=== PATIENT | female | born 1940 | race Caucasian/White ===

== ENCOUNTER 2017-05-28 15:55 | Emergency (ER) | payer OTHER ==
[~2017-05-28] VITALS: Ht 157.5 cm; Wt 59.0 kg
[2017-05-28 16:06] VITALS: TEMP 36.8; Ht 157.5 cm; Wt 59.0 kg
[2017-05-28] MEDS ORDERED: SODIUM CHLORIDE 0.9% 1000ML 1,000 ML IV ONE (17:30)
[2017-05-28] MEDS ORDERED: SYN50 PO (17:35)
[2017-05-28] MEDS ORDERED: METO50TA16 PO (17:35)
[2017-05-28] MEDS ORDERED: AMLO-110 PO (17:35)
[2017-05-28] MEDS ORDERED: LISI-725 PO (17:35)
[2017-05-28] MEDS ORDERED: PRVC/40 PO (17:35)
[2017-05-28 18:31] LABS: BASO % 0.6 %; BASO ABS # 0.04 K/uL (0-0.2); COMPLETE YES; EOS % 3.1 %; HEMATOCRIT 31.4 % (37-47); IG% 0.2 %; LYMPH % 23.5 %; LYMPH ABS # 1.45 K/uL (1.2-3.4); MEAN CORPUSCULAR HEMOGLOBIN 28.5 pg (25-34); MEAN CORPUSCULAR HGB CONC 33.1 g/dl (32-36); MEAN PLATELET VOLUME 9.3 fL (7.4-10.4); MONO % 9.4 %; NEUT % 63.2 %; PLATELET COUNT 395 K/uL (130-400); RED BLOOD COUNT 3.65 M/uL (4.2-5.4); WHITE BLOOD COUNT 6.18 K/uL (4.8-10.8)
[2017-05-28 18:41] LABS: PROTHROMBIN TIME (PATIENT) 10.4 SECONDS (9.0-12.0)
--- NOTE | 2017-05-28 18:49 | DIAGNOSTIC IMAGING REPORT ---
CT OF THE HEAD WITHOUT CONTRAST CLINICAL HISTORY: Confusion. COMPARISON STUDY: No previous studies for comparison. CT DOSE: 1565.50 mGycm TECHNIQUE: Helical axial images of the head were obtained without IV contrast. Automated exposure control was utilized for the study. A dose lowering technique was utilized adhering to the principles of ALARA. FINDINGS: No acute intracranial hemorrhage, midline shift or mass effect is present. Ventricular system is normal for age. Basilar cisterns are patent. There are no extra axial collections. Payton-white differentiation is preserved. White matter hypodensities suggest moderate small vessel disease. There are no CT findings to suggest acute dural sinus thrombosis or acute territorial infarct. There may be age indeterminate lacunar infarcts within the bilateral basal ganglia. There are no significant calvarial abnormalities. There is mild mucosal thickening of the ethmoid sinuses. IMPRESSION: 1. No acute intracranial hemorrhage or mass effect. 2. Age indeterminate lacunar infarcts within the bilateral basal ganglia and moderate presumed small vessel disease. Electronically signed by: Hugh Thomson M.D. 05/28/2017 6:47 PM Dictated Date/Time: 05/28/2017 6:44 PM
[2017-05-28] MEDS ORDERED: LISINOPRIL 20 MG TAB PO STA (18:57)
[2017-05-28] MEDS ORDERED: METOPROLOL TARTRATE 50 MG TAB PO STA (18:57)
[2017-05-28] MEDS ORDERED: LISINOPRIL 5 MG TAB ONE (19:03)
[2017-05-28 19:12] LABS: BUN/CREATININE RATIO 20.6 (10-20); CALCIUM 9.6 mg/dl (8.5-10.1); CKMB/CK RATIO 2.3 (0-3.0); CREATININE 1.1 mg/dl (0.60-1.20)
[2017-05-28 19:18] LABS: POTASSIUM 4.6 mmol/L (3.5-5.1)
[2017-05-28 20:24] LABS: URINE APPEARANCE CLEAR (CLEAR); URINE BILIRUBIN NEG (NEG); URINE COLOR YELLOW; URINE NITRITE NEG (NEG); URINE PH 5.5 (4.5-7.5); URINE SPECIFIC GRAVITY 1.014 (1.000-1.030); UROBILINOGEN NEG (NEG)
[2017-05-28 20:26] LABS: MANUAL MICROSCOPIC REQUIRED? NO; REVIEW REQ? NO
--- NOTE | 2017-05-28 22:09 | DIAGNOSTIC IMAGING REPORT ---
MRI OF THE BRAIN WITHOUT CONTRAST CLINICAL HISTORY: Confusion. Falls. Evaluate for stroke. COMPARISON STUDY: Head CT performed earlier today. TECHNIQUE: Utilizing a 1.5 Tessie magnet and dedicated coil, multiplanar, multiecho imaging of the brain was performed without IV contrast. FINDINGS: There are no areas of restricted diffusion to suggest acute infarct. Study is mildly compromised by artifact but is diagnostic. Basilar cisterns are patent. There are no extra-axial collections. No acute intracranial hemorrhage, midline shift or mass effect is present. There is moderate atrophy. White matter T2 hyperintense foci suggest moderate small vessel disease. No intracranial masses are identified on this unenhanced exam. Calvarial signal is maintained. There is mild mucosal thickening of the ethmoid sinuses. IMPRESSION: 1. No acute intracranial findings. 2. Moderate atrophy and moderate small vessel disease. Electronically signed by: Hugh Thomson M.D. 05/28/2017 10:08 PM Dictated Date/Time: 05/28/2017 10:05 PM
--- NOTE | 2017-05-28 22:26 | EMERGENCY ROOM VISIT NOTE ---
ED Visit Note First contact with patient: 17:06 HPI: Dizziness, imbalance, intermittent b/l arm, b/l leg weakness PE: AFVSS, NAD NC/AT, dry MM RRR, no murmurs CTAB Abd soft NT/ND Ext: no edema, erythema Neuro: CN II-XII grossly intact, 5/5 strength and SILT x 4 Ext. No cerebellar deficits including normal [id number] and alt palms. Plan: Labs unremarkable including trop negative without delta 2 hour change, CT head negative for acute changes, MRI negative for acute changes. Patient improve after IVF. Plan for pcp, ortho, neuro f/u. I reviewed the patient's past medical history, medications, and visit nursing notes. I discussed the case with the physician clerical assistant, examined the patient, and agree with the findings and plan as documented in the physician assistants note.
[2017-05-28 22:40] VITALS: BP 161/71; PULSE 76; O2SAT 97
--- NOTE | 2017-05-29 01:25 | EMERGENCY ROOM VISIT NOTE ---
ED Visit Note First contact with patient: 17:06 Chief Complaint: I'm having stroke symptoms. History of Present Illness: Ms. Glass is a 77-year-old white female who ambulates into the ED complaining of confusion, coordination problems, knees and elbows giving out. Patient reports she was feeling fine yesterday. She was awoken from sleep this morning by her sister at 8:30 AM, 7.5 hours ago. She reports this is abnormal because she has been getting up at 6 AM every day her entire life. When she was awake she reports she thought the day was Saturday and forgot about a doctor 's appointment she had for her back issues. Since being awake she reports she feels like her coordination is off and she has to hold onto things to walk and that intermittently when she is holding something her elbows give out and when she is walking her knees give out; she denies that she has fallen. She goes on to report that she was at the back specialist office Dr. Simon who encouraged her to come to the ED to be evaluated for stroke. Patient goes on to report that she has had a bitemporal throbbing headache since she woke up this morning. She rates this discomfort 4/10. The pain is nonradiating. She has not identified any aggravating or alleviating factors related to his pain. She has not taken any medication for pain prior to arrival at the hospital. Associated with her symptoms she reports she has been nauseated but has not vomited. Additionally she reports since she has been nauseated all day she has not taken any or medications or has eaten. She denies any associated fevers, chills, sweats, skin eruptions, skin color changes, recent falls/head trauma, dizziness, lightheadedness, visual changes, hearing changes, difficulty speaking, difficulty swallowing, chest pain, shortness of breath, palpitations, abdominal pain, diarrhea, constipation, back/ flank pain. Review of Systems: As noted above in history of present illness. All body systems were reviewed and found to be negative as noted above. Past Medical History: Hypertension, pneumonia, chronic back pain, status post tonsillectomy, ovarian cyst removal and hayfever seasonal allergies. Current Medications: Medications Dose Route/Sig Max Daily Dose Days Date Category Norvasc (Amlodipine Besylate) 5 Mg Tab 5 Mg PO DAILY 05/28/17 Reported Synthroid (Levothyroxine Sodium) 50 Mcg Tab 50 Mcg PO QAM 05/28/17 Reported Pravastatin Sodium (Pravastatin Sod) 40 Mg Tab 40 Mg PO DAILY 05/28/17 Reported Zestril (Lisinopril) 20 Mg Tab 20 Mg PO DAILY 05/28/17 Reported Lopressor (Metoprolol Tartrate) 50 Mg Tab 50 Mg PO BID 05/28/17 Reported Allergies to Medications: Codeine. Social History: Patient is not employed; she lives by herself and feels safe in her home environment; she denies tobacco and alcohol use. Physical Examination: Vital Signs: Date Time Temp Pulse Resp B/P (MAP) Pulse Ox O2 Delivery O2 Flow Rate FiO2 05/28/17 22:40 76 20 161/71 97 05/28/17 20:15 74 20 163/66 97 Room Air 05/28/17 19:43 73 18 122/88 98 Room Air 05/28/17 18:47 191/105 05/28/17 18:42 66 18 177/108 98 Room Air 05/28/17 16:06 36.8 103 18 172/73 99 Room Air GENERAL: 77-year-old female in mild distress due to symptoms, nontoxic-appearing , afebrile and hemodynamically stable. NEUROLOGICAL: Awake, alert and oriented to person, place and time. Answering options appropriately and following commands. Normal gait. Cranial nerves II through XII grossly intact. Romberg test negative. Good short-term and long- term recall. Normal rapid alternate movements of the hands and feet. Normal heel koch test. Able to spell backwards. Good hand eye coordination. SKIN: Warm, dry and pink. No soft tissue eruptions or trauma noted. HEENT: Atraumatic and normocephalic. PERRLA. EOMI thousand nystagmus. Funduscopic examination is unremarkable with no signs of increased intracranial pressure. Sclera white and conjunctiva pink. No tenderness or erythema or cords over the temporal areas. No drainage from naris. Oral cavity moist and pink. Pharynx is nonerythematous or edematous. Speech normal. No lymphadenopathy. Trachea midline. No jugular venous distention. No carotid bruits. BACK: No tenderness over the bony spine. No CVA tenderness. THORAX: Lungs sounds are clear to auscultation and equal bilaterally with symmetrical chest wall. No wheezing, rales or rhonchi. No crepitus, tenderness , subcutaneous air or deformities noted. HEART: Regular rate and rhythm. No gallops, rubs or murmurs are appreciated. ABDOMEN: Flat, soft and nontender. Positive bowel sounds in all quadrants. No guarding, rigidity or organomegaly. EXTREMITIES: Moves all extremities well on command and with purpose. All distal neurovascular statuses are intact and equal bilaterally. 4/5 muscle strength in flexion, extension, abduction and abduction of the shoulders, flexion and extension of the elbows, pronation and supination the forearms, flexion, extension and radial and ulnar deviation of the wrist, revenue cycle specialist strength, flexion, extension, abduction and abduction of the hips, flexion and extension of the knees, plantar flexion and dorsiflexion of the ankles. No dependent edema. No calf tenderness or cords. ED Course: Patient is assessed as noted above. Patient's medication list was reviewed. Laboratory Testing: Test 05/28/17 18:10 05/28/17 18:19 05/28/17 19:45 05/28/17 20:46 Range/Units White Blood Count 6.18 4.8-10.8 K/uL Red Blood Count 3.65 4.2-5.4 M/uL Hemoglobin 10.4 12.0-16.0 g/dL Hematocrit 31.4 37-47 % Mean Corpuscular Volume 86.0 80-100 fL Mean Corpuscular Hemoglobin 28.5 25-34 pg Mean Corpuscular Hemoglobin Concent 33.1 32-36 g/dl Platelet Count 395 130-400 K/uL Mean Platelet Volume 9.3 7.4-10.4 fL Neutrophils (%) (Auto) 63.2 % Lymphocytes (%) (Auto) 23.5 % Monocytes (%) (Auto) 9.4 % Eosinophils (%) (Auto) 3.1 % Basophils (%) (Auto) 0.6 % Neutrophils # (Auto) 3.91 1.4-6.5 K/uL Lymphocytes # (Auto) 1.45 1.2-3.4 K/uL Monocytes # (Auto) 0.58 0.11-0.59 K/uL Eosinophils # (Auto) 0.19 0-0.5 K/uL Basophils # (Auto) 0.04 0-0.2 K/uL RDW Standard Deviation 47.6 36.4-46.3 fL RDW Coefficient of Variation 15.1 11.5-14.5 % Immature Granulocyte % (Auto) 0.2 % Immature Granulocyte # (Auto) 0.01 0.00-0.02 K/uL Prothrombin Time 10.4 9.0-12.0 SECONDS Prothromb Time International Ratio 1.0 0.9-1.1 Activated Partial Thromboplast Time 25.7 21.0-31.0 SECONDS Partial Thromboplastin Ratio 1.0 Sodium Level 137 136-145 mmol/L Potassium Level 4.6 3.5-5.1 mmol/L Chloride Level 102 98-107 mmol/L Carbon Dioxide Level 29 21-32 mmol/L Anion Gap 6.0 3-11 mmol/L Blood Urea Nitrogen 23 7-18 mg/dl Creatinine 1.10 0.60-1.20 mg/dl Est Creatinine Clear Calc Drug Dose 33.3 ml/min Estimated GFR () 55.7 Estimated GFR (Non- 48.1 BUN/Creatinine Ratio 20.6 10-20 Random Glucose 107 70-99 mg/dl Calcium Level 9.6 8.5-10.1 mg/dl Total Bilirubin 0.5 0.2-1 mg/dl Direct Bilirubin 0.1 0-0.2 mg/dl Aspartate Amino Transf (AST/SGOT) 28 15-37 U/L Alanine Aminotransferase (ALT/SGPT) 25 12-78 U/L Alkaline Phosphatase 31 45-117 U/L Total Creatine Kinase 263 26-192 U/L Creatine Kinase MB 6.0 0.5-3.6 ng/ml Creatine Kinase MB Ratio 2.3 0-3.0 Total Protein 7.5 6.4-8.2 gm/dl Albumin 4.2 3.4-5.0 gm/dl Bedside Troponin I < 0.030 0-0.045 ng/ml Urine Color YELLOW Urine Appearance CLEAR CLEAR Urine pH 5.5 4.5-7.5 Urine Specific [place] 1.014 1.000-1.030 Urine Protein NEG NEG Urine Glucose (UA) NEG NEG Urine Ketones TRACE NEG Urine Occult Blood 1+ NEG Urine Nitrite NEG NEG Urine Bilirubin NEG NEG Urine Urobilinogen NEG NEG Urine Leukocyte Esterase TRACE NEG Urine WBC (Auto) 1-5 0-5 /hpf Urine RBC (Auto) 0-4 0-4 /hpf Urine Hyaline Casts (Auto) 0 0-5 /lpf Urine Epithelial Cells (Auto) 10-20 0-5 /lpf Urine Bacteria (Auto) NEG NEG Troponin I < 0.015 0-0.045 ng/ml EKG: Was read by myself and reviewed with Dr. Pak; shows normal sinus rhythm with a ventricular rate of 94 bpm. Occasional PACs. No acute ST changes indicating ischemia, injury or infarction. No previous to compare. Head CT: Was reviewed by myself and read by the radiologist showing no acute intracranial hemorrhage or mass effect. Age indeterminate lacunar infarcts within the bilateral basal ganglia and moderate persistent and small vessel disease. Brain MRI: Was reviewed by myself and read by the radiologist showing no acute intracranial findings and moderate atrophy and moderate small vessel disease. Patient was hydrated with normal saline and she was given 20 mg of lisinopril by mouth and 50 mg of metoprolol by mouth for her hypertension. Patient was reassessed multiple times during her stay in the emergency department. Patient's case was reviewed with Dr. Pak; we agreed on diagnostic approach, treatment, disposition and plan. Patient was fed prior to discharge. Patient was educated about today's findings and instructed on her treatment plan ; she verbalized understanding and agreement with this plan. Clinical Impression: Confusion. Upper and lower extremity weakness. Headache. Hypertension. Decision-Making: Initially my differential diagnosis I considered TIA, CVA, temporal arteritis, dementia and other causes. Disposition: Patient discharged home in stable condition accompanied by her sister; prior to departure she was reassessed and subjectively reported that she was pain and symptom-free. Plan: Patient was encouraged to continue her current medications as prescribed. Patient was encouraged to keep her upcoming appointment with her new primary care provider and back surgeon. Patient was encouraged return ED for worsening confusion, worsening extremity weakness, uncontrolled blood pressure, worsening headaches or any new/ concerning symptoms.
== END 2017-05-28 22:40 | disposition home or self-care (01) ==
LOC: C.EDB 15:59
DX: R41.0 Disorientation, unspecified (principal); R29.898 Other symptoms and signs involving the musculoskeletal system; R51 Headache; I10 Essential (primary) hypertension; Z87.01 Personal history of pneumonia (recurrent); Z90.89 Acquired absence of other organs; Z98.890 Other specified postprocedural states; Z79.899 Other long term (current) drug therapy